=== PATIENT | male | born 1980 | race African-American/Black ===

== ENCOUNTER 2021-11-14 17:15 | Emergency (ER) | payer MEDICAID ==
[~2021-11-14] VITALS: Ht 167.6 cm; Wt 75.0 kg
[2021-11-14] MEDS ORDERED: SODIUM CHLORIDE 0.9% 1,000 ML IV ONE (18:00)
[2021-11-14 18:19] LABS: BASOPHILS % 0.8 % (0.0-2.0); EOSINOPHILS % 1.7 % (0.0-5.0); HEMATOCRIT. 44.7 % (42.0-52.0); HEMOGLOBIN. 14.8 g/dL (14.0-18.0); LYMPHOCYTES % 29.5 % (20.0-50.0); MEAN CORPUSCULAR VOLUME 96.7 fL (80.0-94.0); MEAN PLATELET VOLUME 8.5 fl (7.4-10.4); MONOCYTES % 11.5 % (2.0-8.0); NEUTROPHILS % 56.5 % (40.0-76.0); PLATELET 227 x1000/uL (130-400); RED BLOOD CELL COUNT 4.63 mill/uL (4.7-6.1)
[2021-11-14 18:30] LABS: CHLORIDE 106 mEq/L (98-107)
[2021-11-14 18:34] LABS: ETHANOL BLOOD < 10 mg/dL
[2021-11-14] MEDS ORDERED: ACETAMINOPHEN 325MG TABLET PO ONE (20:00)
[2021-11-14 20:22] VITALS: BP 125/85
== END 2021-11-14 20:47 | disposition home or self-care (01) ==
LOC: ER 17:15
DX: E86.0 Dehydration (principal); F10.229 Alcohol dependence with intoxication, unspecified; Y90.0 Blood alcohol level of less than 20 mg/100 ml; R45.6 Violent behavior
CPT/HCPCS: 36415; 80053; 80320; 85025; 96360; 99283; J7030; Z7610; G0480